=== PATIENT | female | born 1950 | race Caucasian/White ===

== ENCOUNTER → 2017-02-17 | Outpatient (CLI) | payer MEDICARE, OTHER ==
[~2017-02-17] MED LIST: ASPIRIN 81M81 MG/TA2 PO; BENICAR HCT 251 TAB PO; CALCIUM 600MG+D1 TAB PO; CALCIUM1 CAP PO; CLARITIN D TAB1 TAB PO; COLACE 100100 MG/CAP PO; DETROL LA4 MG PO; FENOFIBRATE160 MG PO; FIBER TABLETS1 TAB PO; FLONASE NASAL S16 GM NS; LEVOTHYROXINE0.05 MG PO; NATURAL IRON65 MG PO; NIACIN TIME RE500 MG PO; OMEGA 31000 MG PO; PREMARIN .3MG0.3 MG PO; PREMARIN 0.60.625 M1 PO; PRIL40 PO; THERAGRAN1 TA1 PO; VERAPAMIL HCL360 MG PO; ZANTAC 150150 MG PO; ZIAC 10 MG-6.251 TAB PO
== END ==
LOC: MC.RAD 08:40
DX: Z12.31 Encounter for screening mammogram for malignant neoplasm of breast (principal)

== ENCOUNTER → 2018-03-28 | Outpatient (CLI) | payer MEDICARE, OTHER | LOC: MC.RAD 13:51 | DX: Z12.31 Encounter for screening mammogram for malignant neoplasm of breast (principal) ==

== ENCOUNTER 2018-05-25 15:58 | Outpatient (RCR) | payer MEDICARE, OTHER | END 2018-06-12 14:32 | disposition home or self-care (01) | LOC: WSPT 15:58 | DX: M79.652 Pain in left thigh (principal) ==

== ENCOUNTER → 2019-06-21 | Outpatient (CLI) | payer MEDICARE, OTHER | LOC: MC.RAD 08:45 | DX: Z12.31 Encounter for screening mammogram for malignant neoplasm of breast (principal) ==

== ENCOUNTER → 2020-06-23 | Outpatient (CLI) | payer MEDICARE, OTHER | LOC: MC.RAD | DX: Z12.31 Encounter for screening mammogram for malignant neoplasm of breast (principal) ==

== ENCOUNTER 2021-06-04 08:27 | Day surgery (SDC) | payer MEDICARE, OTHER ==
[~2021-06-04] VITALS: Ht 160 cm; Wt 59.4 kg
[2021-06-04] MEDS ORDERED: ZIAC 10/6.25M1 UDTAB PO (09:30)
[2021-06-04] MEDS ORDERED: VERELAN PM300 MG PO (09:57)
[2021-06-04] MEDS ORDERED: BENICAR40 MG PO (09:58)
[2021-06-04] MEDS ORDERED: VERELAN360 MG PO (09:58)
[2021-06-04] MEDS ORDERED: DETROL LA4 PO (09:59)
[2021-06-04] MEDS ORDERED: SYNTHROID0.075 MG/T PO (10:03)
[2021-06-04] MEDS ORDERED: MULTI VITAMINS1 TAB PO (10:05)
[2021-06-04] MEDS ORDERED: FLONASE NASAL S16 GM NS (10:05)
[2021-06-04] MEDS ORDERED: CALCIUM PO (10:06)
[2021-06-04] MEDS ORDERED: CITRUCEL PO (10:07)
[2021-06-04] MEDS ORDERED: ASPIRIN 81M81 MG/TA2 PO (10:08)
[2021-06-04] MEDS ORDERED: PRIL40 PO (10:10)
[2021-06-04] MEDS ORDERED: IRON PO (10:11)
[2021-06-04] MEDS ORDERED: SINGULAIR 110 MG/TAB PO (10:12)
[2021-06-04] MEDS ORDERED: NEURONTIN600 MG/TAB PO (10:12)
[2021-06-04] MEDS ORDERED: PEPCID 20MG TAB20 MG PO (10:13)
[2021-06-04] MEDS ORDERED: JOINT SUPPLEMENT PO (10:17)
[2021-06-04] MEDS ORDERED: ZYRTEC5 MG PO (10:18)
[2021-06-04] MEDS ORDERED: ALLEGRA 60MG TA60 MG PO (10:19)
[2021-06-04] MEDS ORDERED: PREMARIN .3MG0.3 MG PO (10:20)
[2021-06-04] MEDS ORDERED: PLAQUENIL 200M200 MG PO (10:20)
[2021-06-04 10:28] VITALS: BP 161/83; PULSE 75; TEMP 97.8
[2021-06-04 10:52] VITALS: BP 124/61; PULSE 64; TEMP 97.9
[2021-06-04 11:00] VITALS: BP 120/67; PULSE 67
[2021-06-04 11:15] VITALS: BP 132/97; PULSE 65
--- NOTE | 2021-06-04 11:45 | NUR ---
1052 Pt returns from endo procedure via cart and RN assist to [facility] [place] [facility]. Pt ambulates from cart to recliner with RN assist. Monitors on and alarms set. Call light within reach. Report received from ZAFAR Santiago. Pt alert and oriented. Pt requests water and muffin. Pt denies any pain or nausea. Pt's son brought to pt's room. 1100 Pt taking food and drink well. No complications noted. 1115 Discharge instructions given to pt and pt's son. All questions answered to their satisfaction. Handed to pt are a thank you card and discharge information. 1145 Pt transferred out of the hospital via wheelchair and Salma assist, to private vehicle driven by pt's son.
== END 2021-06-04 11:45 | disposition home or self-care (01) ==
LOC: SDCO 08:27
DX: Z12.11 Encounter for screening for malignant neoplasm of colon (principal); D12.3 Benign neoplasm of transverse colon; D12.0 Benign neoplasm of cecum; I10 Essential (primary) hypertension; E78.5 Hyperlipidemia, unspecified; J45.909 Unspecified asthma, uncomplicated; K21.9 Gastro-esophageal reflux disease without esophagitis; M19.90 Unspecified osteoarthritis, unspecified site; E03.9 Hypothyroidism, unspecified; G89.29 Other chronic pain; M54.16 Radiculopathy, lumbar region; Z90.49 Acquired absence of other specified parts of digestive tract; Z79.899 Other long term (current) drug therapy; Z79.890 Hormone replacement therapy; Z79.82 Long term (current) use of aspirin
CPT/HCPCS: J2704; J7030

== ENCOUNTER → 2021-06-26 | Outpatient (CLI) | payer MEDICARE, OTHER ==
[~2021-06-26] MED LIST changes: +ALLEGRA 60MG TA60 MG PO; +BENICAR40 MG PO; +CALCIUM PO; +CITRUCEL PO; +DETROL LA4 PO; +IRON PO; +JOINT SUPPLEMENT PO; +MULTI VITAMINS1 TAB PO; +NEURONTIN600 MG/TAB PO; +PEPCID 20MG TAB20 MG PO; +PLAQUENIL 200M200 MG PO; +SINGULAIR 110 MG/TAB PO; +SYNTHROID0.075 MG/T PO; +VERELAN PM300 MG PO; +VERELAN360 MG PO; +ZIAC 10/6.25M1 UDTAB PO; +ZYRTEC5 MG PO
== END ==
LOC: MC.RAD 10:53
DX: Z12.31 Encounter for screening mammogram for malignant neoplasm of breast (principal)

== ENCOUNTER 2022-06-19 15:08 | Emergency (ER) | payer MEDICARE, OTHER ==
[~2022-06-19] VITALS: Ht 160 cm; Wt 63.6 kg
[2022-06-19 15:10] VITALS: TEMP 97.6
[2022-06-19 17:28] LABS: BASO % 0.6 % (0.0-2.0); EOS # 0.3 K/mm3 (0.0-0.7); EOS % 4.8 % (0.0-4.0); GRAN # 4.8 K/mm3 (1.4-6.5); GRAN % 69.9 % (42.2-75.2); HEMOGLOBIN 12.1 g/dl (12.5-16.0); LYMPH % 14.4 % (20.0-51.0); MEAN CELL VOLUME 82 fl (80.0-100.0); MEAN CORPUSCULAR HEMOGLOBIN 29 pg (27-31); MEAN CORPUSCULAR HGB CONC 36 g/dl (33.0-37.0); MEAN PLATELET VOLUME 9.1 fl (7.4-10.4); MONO # 0.7 K/mm3 (0.1-0.6); MONO % 9.7 % (1.7-9.3); PLATELET COUNT 252 K/mm3 (130-400); RED BLOOD COUNT 4.13 M/mm3 (4.10-5.30); REDCELL DISTRIBUTION WIDTH-CV 11.5 % (11.5-14.5)
[2022-06-19 17:42] LABS: ALBUMIN 3.7 gm/dL (3.4-4.8); BILIRUBIN,TOTAL 0.4 mg/dL (0.2-1.2); CALCIUM 8.9 mg/dL (8.4-10.2); CREATININE, serum 0.86 mg/dL (0.57-1.11); TOTAL PROTEIN 6.7 gm/dL (6.2-8.1)
[2022-06-19 17:50] LABS: TROPONIN-I 0.014 ng/mL (0.00-0.033)
[2022-06-19 19:00] VITALS: BP 191/90; PULSE 74
== END 2022-06-19 19:00 | disposition home or self-care (01) ==
LOC: COL.ER 15:08
PROVIDERS: Emergency Medicine
DX: J32.9 Chronic sinusitis, unspecified (principal); E87.6 Hypokalemia; R07.89 Other chest pain; Z88.2 Allergy status to sulfonamides